=== PATIENT | male | born 1985 | race Caucasian/White ===

== ENCOUNTER 2020-06-02 10:20 | Outpatient (REF) | payer MEDICAID, SELFPAY | END 2020-06-02 10:21 | disposition home or self-care (01) | LOC: HO.LAB 10:20 | PROVIDERS: Visit Provider Internal Medicine | DX: Z20.828 Contact with and (suspected) exposure to other viral communicable diseases (principal) | CPT/HCPCS: C9803; U0003 ==

== ENCOUNTER 2021-02-26 16:31 | Emergency (ER) | payer MEDICAID, SELFPAY ==
--- NOTE | ~2021-02-26 | XR_ITS ---
EXAMINATION: XR SOFT TISSUE NECK CLINICAL INDICATION: Feels like things getting caught in the throat COMPARISON: None TECHNIQUE: 2 views of the soft tissue neck were obtained. FINDINGS: Soft tissue films of the neck demonstrate a normal larynx, pharynx and upper trachea. No soft tissue swelling or opaque foreign body is demonstrated. XR/XR soft tissue neck IMPRESSION: Unremarkable examination.
[2021-02-26 17:43] VITALS: BP 125/86; PULSE 80; RESP 16; TEMP 37.1; O2SAT 97; BMI 24.3
--- NOTE | 2021-02-26 17:45 | ED_ITS ---
HPI - URI/Sore Throat General Chief Complaint: Upper Respiratory Symptoms Stated Complaint: SORE THROAT Time Seen by Provider: 02/26/21 17:26 Source: patient Mode of arrival: ambulatory History of Present Illness HPI Narrative: 35-year-old male with no significant past medical history presenting to the ED complaining of sore throat x2 days. Reports pain with swallowing. States since the summer feels like he has swelling in lower throat /choking on meat. Denies fever, chills, ear pain, cough, recent travel, COVID- 19 exposure, inability to swallow MD elicited complaint: sore throat Related Data Previous Rx's Medication Instructions Recorded amoxicillin 875 mg-potassium 1 tab PO Q12H 7 Days #14 tab 02/26/21 clavulanate 125 mg tablet (Augmentin) Allergies Allergy/AdvReac Type Severity Reaction Status Date / Time No Known Allergies Allergy Unverified 04/03/20 17:50 Review of Systems Review of Systems: Constitutional: No Fever, No Chills, No Fatigue, No Malaise ENT/Mouth: No Ear Pain, No Nasal Congestion, No Hoarseness, + sore throat, No Rhinorrhea, + Swallowing Difficulty, +pain with swallowing Eyes: No Eye Pain, No Swelling, No Redness Cardiovascular: No Chest Pain, No SOB Respiratory: No Cough, No Sputum, No Wheezing Musculoskeletal: No joint pain, No Myalgias, No Joint Swelling Skin: No Skin Lesions, No rash Neuro: No Weakness, No Headache Yes all other systems are reviewed and are negative PMFSH Past Medical History Attestation statement: The following information was validated with the patient. Medical History (Updated 02/26/21 @ 19:26 by DEISY Torres) Patient denies significant medical history Social History Social History Advance Directives: No Advance Directives Information Provided: No Physical Exam Vital Signs: Vital Signs: Last Vital Signs Temp 98.8 F 02/26/21 17:43 Pulse 80 02/26/21 17:43 Resp 16 02/26/21 17:43 BP 125/86 02/26/21 17:43 Pulse Ox 97 02/26/21 17:43 Body Mass Index 24.3 Const: General: cooperative, healthy appearing and no acute distress Orientation/consciousness: patient oriented x3 Limitations: no limitations HENMT: Head: Yes normal to inspection Ears: hearing grossly normal bilaterally and TM's normal bilaterally General nose exam: Normal external nose present Face and sinus: Yes normal facial exam Mouth: Normal oral and palatal mucosa present Throat: Yes posterior oropharynx normal, Yes tonsils normal, Yes uvula midline, No peritonsillar mass, No uvula laterally displaced and No uvular edema Eyes: General: appearance normal, both eyes and all related structures EOM: EOMs intact bilaterally Neck: Other: + right sided unilateral submandibular/anterior cervical lymphadenopathy Neck: Yes normal visual inspection, Yes no meningeal signs, Yes trachea midline and Yes supple Resp: Effort & Inspection: normal respiratory effort, no grunting, not labored, no pursed lip breathing, no respiratory distress and no stridor Cardio: Rate: regular rate Skin: Rashes: no rashes Wounds: no wounds Neuro: General: patient oriented x3 and no meningeal signs Gait exam (Neuro): Normal gait present Extrem: General: Yes normal to inspection Course Course Course Narrative: -COVID-19/influenza/RSV negative. Rapid strep negative XR soft tissue neck IMPRESSION: Unremarkable examination. 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 He verbalized understanding feel safe for discharge home MDM - URI/Sore Throat MDM Narrative Medical decision making narrative: 35-year-old male with no significant past medical history presenting to the ED complaining of sore throat x2 days. On exam VSS, NAD/well-appearing, physical exam as above. Right-sided unilateral lymphadenopathy noted. Talking in complete sentences, no respiratory distress. Oropharynx WNL. Concern for viral syndrome/COVID-19 vs strep pharyngitis vs esophageal abnormality Plan: COVID-19 testing, rapid strep, x-ray soft tissue neck, ENT follow-up Lab Data Labs: Lab Results 02/26/21 02/26/21 Range/Units 17:39 17:39 Coronavirus (PCR) NEGATIVE (Negative) Influenza Type A (PCR) NEGATIVE (Negative) Influenza Type B (PCR) NEGATIVE (Negative) RSV RNA Qual (PCR) NEGATIVE (Negative) S. pyogenes GrpA KAYLEE Negative (Negative) Discharge Plan Discharge Clinical Impression: Pharyngitis, Lymphadenopathy Patient Disposition: Home, Self-Care Instructions: Pharyngitis (ED) Additional Instructions: Your x-ray was unremarkable. You tested negative for COVID-19, the flu, and RSV. Augmentin is an antibiotic, please take as prescribed for your inflamed lymph node. It is important for you to follow-up with ear nose throat special ist. If her symptoms persist or worsen, your unable to swallow, have fever, or persistent symptoms days return to the ED. Follow up with her doctor Dumont radiograf?a no tuvo nada especial. Tu resultado fue negativo para COVID-19, gripe y RSV. Augmentin es un antibi?marcella, t?hall seg?n lo prescrito para dumont ganglio linf?marcella inflamado. Es importante que realice un seguimiento con un especialista en o?do, nariz y garganta. Si lenka s?ntomas persisten o empeoran, no puede tragar, tiene fiebre o s?ntomas persistentes myriam d?as, regresa al servicio de urgencias. Seguimiento con dumont m?dico Prescriptions: New amoxicillin-pot clavulanate [Augmentin] 875-125 mg tablet 1 tab PO Q12H 7 Days Qty: 14 RF: 0 Referrals: Melvin Leiva [Physician] - 2 days Print Language: Polish
[2021-02-26 17:57] LABS: IDNOW Serial# 9DD0AD1C; Strep A Nucleic Acid Negative (Negative)
[2021-02-26 18:38] LABS: Influenza A PCR NEGATIVE (Negative); Influenza B PCR NEGATIVE (Negative); Resp Syncy Virus RNA Qual PCR NEGATIVE (Negative); SARS COV2 PCR INHOUSE NEGATIVE (Negative)
== END 2021-02-26 19:43 | disposition home or self-care (01) ==
PROVIDERS: Emergency Provider Emergency Medicine Emergency Medical Services
DX: J02.9 Acute pharyngitis, unspecified (principal); R59.1 Generalized enlarged lymph nodes; Z20.822 Contact with and (suspected) exposure to COVID-19
CPT/HCPCS: 0241U; 36415; 70360; 87651; 99283

== ENCOUNTER 2021-07-15 11:21 | Outpatient (REF) | payer MEDICAID, SELFPAY ==
[2021-07-15 13:54] LABS: COVID-19 Test Positive (Negative); IDNOW Serial# 16C4AD1C
== END 2021-07-15 11:22 | disposition home or self-care (01) ==
LOC: HO.LAB 11:21
PROVIDERS: Visit Provider Internal Medicine
DX: Z20.822 Contact with and (suspected) exposure to COVID-19 (principal)
CPT/HCPCS: 36415; 87635; C9803